=== PATIENT | male | born 2000 | race Caucasian/White ===

== ENCOUNTER 2022-04-19 11:08 | Outpatient (CLI) | payer OTHER, SELFPAY ==
--- NOTE | 2022-05-08 08:41 | W.PM.SLEEP ---
Sleep Study Details Details Interpreting Provider: Isauro Mann MD Date of Sleep Study: 04/19/22 Sleep Study Details: STUDY TYPE:? Home ? BMI:? Not recorded ORDERING PROVIDER:? Misael INDICATION:? Concerns about sleep apnea ? SLEEP SUMMARY:? Monitor time of 440.6 minutes RESPIRATORY SUMMARY:? AHI is 2.5. PERIODIC LIMB MOVEMENTS OF SLEEP:? Not recorded CARDIAC:? 41-98, mean 59.5 IMPRESSION:? This study does not demonstrate clinically significant obstructive sleep apnea RECOMMENDATION: Consider rechecking study in 5 years
== END 2022-04-19 11:09 | disposition home or self-care (01) ==
PROVIDERS: PCP Family Medicine; Visit Provider Otolaryngology
DX: G47.00 Insomnia, unspecified (principal); G47.30 Sleep apnea, unspecified; R06.83 Snoring
CPT/HCPCS: 95806